=== PATIENT | female | born 1970 | race Caucasian/White ===

== ENCOUNTER → 2016-08-18 | Outpatient (CLI) | payer BC ==
[~2016-08-18] MED LIST: CYAN10005 PO; FEXO1TAB49 PO; LEVO75TA PO; MONT1TAB3 PO; MULT-506 PO; OXYC-57 PO
== END | disposition home or self-care (01) ==
LOC: C.PAPS 10:30
PROVIDERS: ATTEND Obstetrics & Gynecology
DX: Z01.419 Encounter for gynecological examination (general) (routine) without abnormal findings (principal)

== ENCOUNTER → 2017-04-05 | Outpatient (CLI) | payer BC | END | disposition home or self-care (01) | LOC: C.PATHSPEC 11:24 | PROVIDERS: ATTEND Obstetrics & Gynecology | DX: N93.9 Abnormal uterine and vaginal bleeding, unspecified (principal) ==

== ENCOUNTER → 2017-04-05 | Outpatient (CLI) | payer BC ==
[2017-04-05 12:19] LABS: HEMATOCRIT 39.3 % (37-47); MEAN CELL VOLUME 94.2 fL (80-100); MEAN CORPUSCULAR HEMOGLOBIN 33.3 pg (25-34); MEAN CORPUSCULAR HGB CONC 35.4 g/dl (32-36); MEAN PLATELET VOLUME 10.4 fL (7.4-10.4); PLATELET COUNT 265 K/uL (130-400); RED BLOOD COUNT 4.17 M/uL (4.2-5.4)
== END | disposition home or self-care (01) ==
LOC: C.LAB1850 10:25
PROVIDERS: ATTEND Obstetrics & Gynecology
DX: N93.9 Abnormal uterine and vaginal bleeding, unspecified (principal)

== ENCOUNTER 2017-05-07 09:12 | Observation (INO) | payer BC ==
[2017-04-23 13:37] VITALS: BMI 24.0
[2017-04-23 14:57] LABS: BASO % 0.7 %; BASO ABS # 0.04 K/uL (0-0.2); COMPLETE YES; IG% 0.2 %; LYMPH % 36.3 %; LYMPH ABS # 2.15 K/uL (1.2-3.4); MEAN CORPUSCULAR HEMOGLOBIN 33.3 pg (25-34); MONO % 7.9 %; NEUT % 53.9 %; PLATELET COUNT 250 K/uL (130-400); RED BLOOD COUNT 4.21 M/uL (4.2-5.4); WHITE BLOOD COUNT 5.93 K/uL (4.8-10.8)
[~2017-05-07] VITALS: Ht 157.5 cm; Wt 61.6 kg
[2017-05-07] VITALS (7 sets, daily range): BP systolic 101–123; BP diastolic 59–76; PULSE 81–102; TEMP 36.5–37; O2SAT 99–100; Ht 157.5 cm; Wt 61.6 kg
[~2017-05-07 09:12] MED LIST changes: +CEFAZOLIN 2000 MG/60 ML D5W 50 ML IV SCH; +CHECK SCOPOLAMINE PATCH PLACEMENT SCH; +HEPARIN SOD 5000 UNIT/0.5 ML CARP SQ SCH; +LACTATED RINGER'S 1000ML 1,000 ML IV SCH; -OXYC-57 PO; +SCOPOLAMINE 1.5 MG TDSY TD SCH
[2017-05-07] MEDS ORDERED: ONDANSETRON INJ 2 MG/ML 2 ML VIAL IV PRN ×2 (10:15→15:00)
[2017-05-07] MEDS ORDERED: ATROPINE SULFATE 0.1 MG/ML 5ML SYR IV PRN (10:15)
[2017-05-07] MEDS ORDERED: FENTANYL CITRATE INJ 50 MCG/1 ML 2 ML VIAL IV PRN (10:15)
[2017-05-07] MEDS ORDERED: EpHEDrine SULFATE INJ 50 MG/ML AMP IV PRN (10:15)
[2017-05-07] MEDS ORDERED: LIDOCAINE HCL 2% 2 ML VIAL (20MG/ML) ONE (11:02)
[2017-05-07] MEDS ORDERED: PROPOFOL IV EMULSION 10 MG/ML 20 ML VIAL IV ONE (11:02)
[2017-05-07] MEDS ORDERED: ROCURONIUM BROMIDE 10 MG/ML 5 ML VIAL IV ONE (11:02)
[2017-05-07] MEDS ORDERED: FENTANYL CITRATE INJ 50 MCG/1 ML 2 ML VIAL ONE ×3 (11:02→13:07)
[2017-05-07] MEDS ORDERED: MIDAZOLAM HCL 1 MG/ML 2ML VIAL ONE (11:03)
--- NOTE | 2017-05-07 12:15 | History & Physical Bridge Note ---
H&P Re-Evaluation Bridge Note: I have examined the patient, reviewed the History & Physical and in the interval since the performance of the History & Physical I have noted the following changes of clinical significance: Again discussed patient's hematology consult with her and based on conversation with Dr. Almaraz yesterday was given heparin sq and using teds and scds preop. she is comfortable with plan and wants to proceed.
[2017-05-07] MEDS ORDERED: METHYLENE BLUE 0.5% 10 ML VIAL ONE (12:19)
[2017-05-07] MEDS ORDERED: BUPIVACAINE 0.5 % 5 MG/1 ML MPF 30ML VIAL ONE (12:19)
[2017-05-07] MEDS ORDERED: HYDROmorphone INJ 2 MG/ML SYR/VIAL ONE (13:00)
--- NOTE | 2017-05-07 14:47 | [facility] Post Operative Brief Note ---
Immediate Operative Summary Operative Date May 07, 2017. (Nayan Mcgraw MD) Pre-Operative Diagnosis Abnormal uterine bleeding, Pelvic pain in female, Uterine leiomyoma (Nayan Mcgraw MD) Post-Operative Diagnosis Abnormal uterine bleeding, Pelvic pain in female, Uterine leiomyoma (Nayan Mcgraw MD) Procedure(s) Performed Robot Assisted, Total Laparoscopic Hysterectomy, Bilateral Salpingectomy (Nayan Mcgraw MD) left cystectomy, cystoscopy (Mine Covarrubias M.D.(LITHOGRAPHIC PHOTOGRAPHER/OB)) Surgeon Dr. Covarrubias (Nayan Mcgraw MD) Change Management Analyst Surgeon(s) NONE (Nayan Mcgraw MD) Estimated Blood Loss 20 cc (Nayan Mcgraw MD) Findings Uterus with subserosal fibroid, Left ovary with haemmorhagic cyst, Righ normal right ovary, normal bilateral fallopian tubes, normal bladder with normal ureter jets, right broad ligament fibroid (Nayan Mcgraw MD) cystoscopy findings with normal bladder filling and normal ureteral jets. (Mine Covarrubias M.D.(LITHOGRAPHIC PHOTOGRAPHER/OB)) Fluids (cc crystalloids) 1800 (Nayan Mcgraw MD) Specimens A. Uterus with bilateral fallopian tubes B. Left Ovarian Hemorrhagic Cyst C. Right broad ligament fibroid (Nayan Mcgraw MD) Drains 300ml of urine with zimmerman catheter (Nayan Mcgraw MD) Anesthesia General (Nayan Mcgraw MD) Complication(s) None (Nayan Mcgraw MD) Disposition PCU (Nayan Mcgraw MD)
[2017-05-07] MEDS ORDERED: LACTATED RINGER'S 1000ML 1,000 ML IV SCH (15:00)
[2017-05-07] MEDS ORDERED: SIMETHICONE 80 MG CHEW PO PRN (15:00)
[2017-05-07] MEDS ORDERED: KETOROLAC TROMETHAMINE 30 MG/ML VIAL IV. PRN (15:00)
[2017-05-07] MEDS ORDERED: IBUPROFEN 600 MG TAB PO PRN (15:00)
[2017-05-07] MEDS ORDERED: ACETAMINOPHEN 325 MG TAB PO PRN (15:00)
[2017-05-07] MEDS ORDERED: OXYCODONE/ACETAMINOPHEN 5-325 TAB PO PRN ×2 (15:00)
[2017-05-07] MEDS ORDERED: OXYC-57 PO (15:02)
--- NOTE | 2017-05-07 15:04 | Discharge Instructions ---
Discharge Instructions Date of Service May 07, 2017. Admission Reason for Admission: Uterine Leiomyoma, Abnormal Uterine Bleeding Discharge Discharge Diagnosis / Problem: after surgery Discharge Goals Goal(s): Routine recovery after surgery Activity Recommendations Activity Limitations: as noted below . Instructions / Follow-Up Instructions / Follow-Up POST OPERATIVE: BOWEL FUNCTION/MEDICATIONS: 1. Constipation pain and discomfort are the most common complaints 5-7 days after surgery. Points 2-6 address the things that can help. 2. Chewing gum can help stimulate the gut and help improve digestion and motility. 3. Milk of Magnesia 1-2 times per day until return of bowel function. 4. Colace is a stool softener that helps. Taking this 2-3 times per day until bowel function returns to normal is highly recommended. 5. Dulcolax is a laxative that may be used if several days have passed without a bowel movement. Alternatively Miralax may be used daily instead. 6. Drink plenty of fluids as this will also reduce constipation. 7. Narcotic pain medications will be prescribed by your physician. They are safe to use and we encourage you to use them. If you are not allergic, ibuprofen will also be prescribed. Many patients will be able to transition off of the narcotic medications to ibuprofen by postoperative day 3. ACTIVITY RECOMMENDATIONS: 1. Get plenty of rest and listen to your body. If you are tired, take a nap. 2. You may shower, but do not take a tub bath until you see your doctor at the 2 week post operative visit. 3. Absolutely NO intercourse and nothing in the vagina until you are examined by your doctor at the 8 week visit. At that visit it will be determined when such activities can be resumed. This can range from 6-12 weeks after your surgery depending on healing time. 4. The main physical activity in the first week should be walking. By the second week you can slowly increase activity. There are no limits on walking up and down stairs. 5. Do not lift more than 5-10 lbs for 4 weeks. Remember the "one-handed rule", i.e. if you can lift something with only one hand it's likely okay. 6. Minimize senior financial like vacuuming and exercising for 4 weeks. "Overdoing it" can lead to incisions not healing, pain and vaginal bleeding , so again, listen to your body. 7. Driving can be resumed when you feel able. Do not drive within 24 hours of taking a narcotic medication. EXPECTATIONS: 1. Vaginal spotting, bleeding and discharge are common after surgery. There may even be an odor to the discharge which is often related to sutures used in the vagina. If you experience heavy vaginal bleeding, call the office number day or night [phone]. 2. Bladder discomfort is common after surgery from the catheter. This usually resolves in 1-2 weeks. 3. By the end of the 3rd or 4th week you should be feeling much better. It may take up to 6 weeks for your energy levels to return to normal. 4. Narcotic medications have side effects such as: dizziness, headache, nausea and/or vomiting. If you suspect your pain medication is causing problems, call our office and we may be able to prescribe an alternate medication. 5. The skin incisions are often covered with a liquid bandage. This will gradually peel off over time. CALL THE OFFICE IF YOU HAVE ANY OF THE FOLLOWIN. Temperature of 101 degrees or higher. 2. Severe abdominal or pelvic pain not relieved by pain medication. 3. Persistent nausea or vomiting. 4. Increased pain with urination or difficulty urinating. 5. Bright red bleeding that soaks more than 1 pad per hour. CONTACT PHONE NUMBERS: Main Office: [phone] Surgical Nurse: [phone] extension [phone] FOLLOW-UP: Post-Operative Appointments: * Individual instructions will have been given about the timing of your first examination, but this is usually at the end of the second week home. * You will need to call the office at soon after discharge to make the appointment for your post-op check-up if it has not already been scheduled. * Additional information regarding activity, sexual intercourse and when to return to work will be given at this appointment. WE WISH YOU A SPEEDY RECOVERY! Current Hospital Diet Patient's current hospital diet: Discharge Diet Recommended Diet: Regular Diet Procedures Procedures Performed: Robot Assisted, Total Laparoscopic Hysterectomy, Bilateral Salpingectomy Pending Studies Studies pending at discharge: yes List of pending studies: pathology Medical Emergencies . Who to Call and When: Medical Emergencies: If at any time you feel your situation is an emergency, please call 911 immediately. . Non-Emergent Contact Non-Emergency issues call your: [employer] . . "Provider Documentation" section prepared by Mine Covarrubias. . VTE Core Measure Inpt VTE Proph given/why not?: SCD's [place] Drug Monitoring Program Search Results: patient reviewed within database, no issues identified
[2017-05-07] MEDS ORDERED: DiphenhydrAMINE HCL 50 MG/ML VIAL ONE (15:05)
[2017-05-07] MEDS ORDERED: DiphenhydrAMINE HCL 50 MG/ML VIAL IV STA (15:10)
[2017-05-07] MEDS ORDERED: PERCOCET HOME PACK PO ONE (15:30)
--- NOTE | 2017-05-07 15:31 | Anesthesiology Progress Note ---
Anesthesia Post Op Note Date & Time May 07, 2017 at 15:30 Vital Signs Pain Intensity: 0 Vital Signs Past 12 Hours Date Time Temp Pulse Resp B/P (MAP) Pulse Ox O2 Delivery O2 Flow Rate FiO2 05/07/17 15:23 70 14 05/07/17 15:23 70 14 103/53 96 05/07/17 15:18 70 17 100 05/07/17 15:18 69 17 05/07/17 15:16 115/59 05/07/17 15:13 69 14 118/67 100 05/07/17 15:13 72 14 05/07/17 15:08 79 20 05/07/17 15:08 79 20 100 05/07/17 15:07 101/ 05/07/17 15:03 72 7 05/07/17 15:03 71 7 100 05/07/17 14:58 84 11 100 05/07/17 14:58 84 11 05/07/17 14:57 100/59 05/07/17 14:54 100/59 05/07/17 14:53 74 17 05/07/17 14:53 75 17 100 05/07/17 14:53 36.7 67 16 100/59 (73) 100 Mask 10 05/07/17 10:04 36.6 85 18 101/59 (73) 99 Room Air Notes Mental Status: alert / awake / arousable, participated in evaluation Pt Amnestic to Procedure: Yes Nausea / Vomiting: adequately controlled Pain: adequately controlled Airway Patency, RR, SpO2: stable & adequate BP & HR: stable & adequate Hydration State: stable & adequate Anesthetic Complications: no major complications apparent Patient c/o generalized itchiness in PACU, given benadryl which helped. Doesn' t appear to be obvious rash though her neck area is red from her itching it.
--- NOTE | 2017-05-07 15:48 | OPERATIVE REPORT ---
DATE OF OPERATION: 05/07/2017 PREOPERATIVE DIAGNOSES: 1. Abnormal uterine bleeding. 2. Uterine leiomyoma. 3. Pelvic pain in a female. 4. History of deep venous thrombosis. POSTOPERATIVE DIAGNOSES: Same. PROCEDURES: 1. Total laparoscopic hysterectomy. 2. Bilateral salpingectomies. 3. Cystoscopy. 4. Robotic assistance. 5. Left ovarian cystectomy. SURGEON: Dr. Mine Covarruibas. END MATCHER: RN. IV FLUIDS: 1800 mL. ESTIMATED BLOOD LOSS: 20 mL. URINE OUTPUT: 200 mL. ANESTHESIA: General. FINDINGS: Uterus with evidence of fibroids and right broad ligament fibroid. Normal ovaries and fallopian tubes bilaterally. Left ovary with evidence of a hemorrhagic cyst. Normal liver edge. Adhesions that could contain some small bowel to the anterior abdominal wall directly in the midline at level of umbilicus. The cystoscopy findings include normal bladder filling and normal ureteral jets. INDICATIONS: A 47-year-old 3, para 3 with a fibroid uterus and abnormal uterine bleeding and pelvic pain, who desired surgical management. She does have a history of breast cancer and therefore, did not want to use any medications. She did not want to plan an ablation or use a Mirena IUD. She wanted definitive hysterectomy. She had a history of DVT in her past as well as pulmonary embolism and therefore, saw hematology prior to the surgery with the plan for prophylaxis to include mechanical and chemical prophylaxis. DESCRIPTION OF PROCEDURE: The patient was taken to the operating room and identified. After adequate general anesthesia was obtained, she was placed in the dorsal lithotomy position and prepped and draped in the usual sterile fashion. A weighted speculum and anterior retractor were used to visualize the cervix, which was grasped at its anterior lip with an Allis clamp. A Romero catheter had already been placed under sterile conditions. A single interrupted suture of 0 Vicryl was placed at 3 o'clock position. The cervix seemed difficult to dilate and because of that, the placement of the VCare cup was abandoned and the tier lift truck operator went from above. A supraumbilical skin incision was made with a scalpel using the knife. The Veress needle was placed intraperitoneally with an opening pressure of 6 mmHg. A CO2 pneumoperitoneum was created. The 12-mm trocar was placed under direct visualization into the peritoneal cavity. The patient was placed in steep Trendelenburg. The pelvis and abdomen were inspected with the findings as noted above. The adhesions involving the loop of bowel was singular; however, was not going to interfere with the pelvic surgery and therefore was left untouched. At this point, the tier lift truck operator went back to the vagina and under visualization, the cervix was easily dilated and the VCare cup was placed gently into the uterine cavity and the balloon was inflated. The suture material was tied to the cup and then stabilizing device was placed. All of the vaginal instruments were removed. Attention was returned to the abdomen. At this point, da Pillo trocar sites, left and right of the midline were created by first creating skin incisions and then placing under direct visualization da Pillo trocars. An additional third arm port site was also created. The patient had been in steep Trendelenburg already. The laparoscope and camera were removed. The da Pillo was brought to the patient's bedside. The instrument arms were connected to the appropriate trocars. The camera was introduced. Through instrument arm #3, a Prograsp was placed. Through instrument arm #1, a Monopolar cem was placed. Through an instrument arm #2, a fenestrated bipolar was placed. The pelvis was inspected and ureters were coursing well below planned operative sites. Attention was then turned to the right round ligament, fallopian tube, and uteroovarian complex. The fallopian tube was completely dissected from the mesosalpinx. The uteroovarian ligament and round ligaments were then coagulated and cut. The dissection line was taken between the uterus and the broad ligament fibroid at this point. The anterior and posterior leaves of the broad ligament were further dissected on this side and the bladder flap was begun from the right towards the midline. The bladder was pushed well away from the planned operative site. Uterine artery pedicles were skeletonized. It was coagulated. The left uterineovarian, fallopian tube, round ligament complex was then identified. The fallopian tube was dissected away from the mesosalpinx on the left side. The uteroovarian ligament was coagulated and then transected. The round ligament complex was also coagulated and transected. The anterior and posterior leaves of the broad ligament were opened up into and the bladder flap was begun from the left and met across the midline to the right. The bladder was pushed well as the planned operative field. The uterine artery was skeletonized on the left. It was then coagulated and transected sequentially. The cardinal ligament attachments were further coagulated and transected. This allowed for clearing up the planned colpotomy site. Attention was returned to the right uterine artery pedicle, which was also then coagulated sequentially and transected. The cardinal ligament attachments were also coagulated and then transected. This allowed for complete mobilization of the site of the planned colpotomy. At this point, the colpotomy was begun. The cervix was carved away from the upper vagina circumferentially. The specimen was brought out through the vagina. Sponge was placed in the vagina to allow for maintenance of the pneumoperitoneum. At this point, the broad ligament fibroid was elevated. It was completely transected and also passed vaginally as a specimen. Attention was turned to the left ovary, where evidence of a likely hemorrhagic cyst was noted. This area was coagulated and a portion of it was transected. It was sent for specimen and that was also passed vaginally. All operative sites thus far were hemostatic. At this point, the #1 instrument arm was replaced with a large needle charter driver. The 2-0 V-Loc 90 suture was passed vaginally. The cuff was then closed in a running fashion using the suture material in the usual fashion. The third instrument arm was undocked and the instrument had been removed. The suture material was cut and then removed using the needle charter driver through this instrument arm. The pelvis was then irrigated. Small bleeding sites to the right of the midline were coagulated. Hemostasis was excellent. The pneumoperitoneum was decreased to look for any other bleeding sites and none were seen. At this point, the camera was removed and the instruments were removed. The pneumoperitoneum was allowed to escape. The trocars were kept in place. The tier lift truck operator then performed a cystoscopy as IV methylene blue had been given. The findings were as noted above. At this point, a new Romero catheter was placed under sterile conditions. Attention was returned to the abdomen and the trocars were removed. The supraumbilical skin incision fascia was reapproximated with a single interrupted suture of 0 Vicryl. All incision sites were stitched with 4-0 Vicryl in subcuticular fashion. They were injected with Marcaine and dressed with Dermabond. The patient was returned to supine position. She was awoken from anesthesia and transferred to the recovery room in stable condition. All sponge, lap and needle counts were correct x2. I attest to the content of the Intraoperative Record and any orders documented therein. Any exceptions are noted below. MTDD
--- NOTE | 2017-05-09 12:20 | Discharge Summary ---
Discharge Summary Date of Service Date of admission: 05/07/2017 Date of discharge: 05/07/2017 Discharge Summary Admission diagnoses: #1 abnormal uterine bleeding #2 symptomatic leiomyoma #3 female pelvic pain #4 history of DVT Discharge diagnoses: Same, hemorrhagic left ovarian cyst Procedures: #1 total laparoscopic hysterectomy #2 bilateral salpingectomies #3 cystoscopy #4 left ovarian cystectomy #5 robotic assistance Brief history of Hospital course: 47-year-old with a history of symptomatic fibroid uterus and abnormal uterine bleeding who desires definitive surgical management. The patient has had a history of breast cancer. Surrounding different surgeries she did have a pulmonary embolism and deep venous thrombosis in the past. These were separate events. She had a consult with hematology prior to the surgery recommending perioperative mechanical and chemical prophylaxis. She underwent the above-stated procedures without incident. On her postop day #0 she was stable for discharge to home. She was tolerating a regular diet, voiding spontaneously without difficulty, ambulating without difficulty, her pain was well-controlled on oral medications and she was stable for discharge to home. She was given discharge instructions and pain medicine prescriptions and was to follow-up in 2 weeks for postop checkup.
== END 2017-05-07 19:51 | disposition home or self-care (01) ==
LOC: C.ACU 09:12 → C.MS4N 09:35 → ENRESERV 15:38
PROVIDERS: ADMIT Obstetrics & Gynecology; ATTEND Obstetrics & Gynecology
DX: N93.9 Abnormal uterine and vaginal bleeding, unspecified (principal); D25.9 Leiomyoma of uterus, unspecified; R10.2 Pelvic and perineal pain; Z86.718 Personal history of other venous thrombosis and embolism; E03.9 Hypothyroidism, unspecified; Z98.890 Other specified postprocedural states; Z98.86 Personal history of breast implant removal; Z98.51 Tubal ligation status; Z88.0 Allergy status to penicillin; Z88.2 Allergy status to sulfonamides; Z90.49 Acquired absence of other specified parts of digestive tract; Z90.10 Acquired absence of unspecified breast and nipple; Z86.711 Personal history of pulmonary embolism; Z85.3 Personal history of malignant neoplasm of breast; Z80.3 Family history of malignant neoplasm of breast; Z80.0 Family history of malignant neoplasm of digestive organs; Z80.49 Family history of malignant neoplasm of other genital organs; Z68.24 Body mass index [BMI] 24.0-24.9, adult
CPT/HCPCS: 58571; S2900